=== PATIENT | female | born 1945 | race Two or more races ===

== ENCOUNTER 2024-06-28 02:06 | Inpatient (IN) | payer MEDICARE, OTHER ==
[~2024-06-28] VITALS: Ht 160 cm; Wt 41.3 kg
[2024-06-28] MEDS ORDERED: MAG HYDROX/AL HYDROX/SIMETH 30 ML UDC PO PRN (05:30)
[2024-06-28] MEDS ORDERED: ONDANSETRON HCL/PF 4 MG/2 ML VIAL IVP PRN (05:30)
[2024-06-28] MEDS ORDERED: MAGNESIUM HYDROXIDE 30 ML UDC PO PRN (05:30)
[2024-06-28] MEDS ORDERED: Z GUARD REMEDY 4 OZ OINT TP PRN (05:30)
[2024-06-28] MEDS ORDERED: DEXTROSE 50%-WATER 50 ML DISP.SYRIN IVP PRN (05:30)
[2024-06-28] MEDS ORDERED: Sodium Chloride 154 MEQ in IV 10% DEXTROSE 1,000 ML IV SCH (05:30)
[2024-06-28] MEDS: IV D5/ 0.9% NACL 1,000 ML IV PRN (07:35)
[2024-06-28 08:00] VITALS: BP 169/75; TEMP 98.1; O2SAT 99
[2024-06-28 08:44] LABS: ALANINE AMINOTRANSFERASE 27 U/L (12-78); ALBUMIN 3.6 g/dL (3.4-5.0); ALKALINE PHOSPHATASE 71 U/L (46-116); ASPARTATE AMINOTRANSFERASE 45 U/L (15-37); BASOPHILS % (AUTO) 0.1 % (0.0-2.0); BILIRUBIN,TOTAL 0.3 mg/dL (0.2-1.0); CALCIUM, SERUM 9.4 mg/dL (8.5-10.1); CARBON DIOXIDE 29 mmol/L (21-32); CHLORIDE 101 mmol/L (98-107); GLUCOSE 103 mg/dL (74-106); HEMATOCRIT 32 % (33-45); HEMOGLOBIN 10.8 g/dL (11.5-14.8); LYMPHOCYTES # (AUTO) 0.6 K/uL (0.8-4.8); LYMPHOCYTES % (AUTO) 11.2 % (20.0-44.0); MAGNESIUM 2.5 mg/dL (1.8-2.4); MEAN CORPUSCULAR HEMOGLOBIN 31 PG (26.0-33.0); MEAN CORPUSCULAR HGB CONC 33 g/dl (31.0-36.0); MEAN CORPUSCULAR VOLUME 93 fL (82-100); MONOCYTES # (AUTO) 0.4 K/uL (0.1-1.30); MONOCYTES % (AUTO) 8.4 % (2.0-12.0); NEUTROPHILS # (AUTO) 4.1 K/uL (1.8-8.9); NEUTROPHILS % (AUTO) 79.3 % (43.0-81.0); PHOSPHORUS 2.5 mg/dL (2.5-4.9); PLATELET COUNT (AUTO) 287 K/uL (150-450); POTASSIUM 5.1 mmol/L (3.5-5.1); RED BLOOD CELL COUNT(AUTO) 3.49 MIL/uL (4.0-5.2); RED CELL DISTRIBUTION WIDTH 20.1 % (11.5-15.0); SODIUM SERUM 138 mmol/L (136-145); TOTAL PROTEIN, SERUM 7.8 g/dL (6.4-8.2); UREA NITROGEN, BLOOD 7 mg/dL (7-18); WHITE BLOOD COUNT (AUTO) 5.2 K/uL (4.3-11.0)
[2024-06-28] MEDS: PANTOPRAZOLE 40 MG VIAL IV SCH (09:49)
[2024-06-28 09:57] LABS: THYROID STIMULATING HORMONE 2.88 uIU/mL (0.358-3.74)
[2024-06-28 10:00] VITALS: BP 169/75; TEMP 98.1; O2SAT 99
[2024-06-28] MEDS: hydrALAZINE HCL IV 20 MG VIAL IV PRN (10:25)
[2024-06-28] MEDS ORDERED: DEXTROSE 50%-WATER 50 ML DISP.SYRIN IV PRN (11:30)
[2024-06-28] MEDS ORDERED: CALC-1239 PO (11:46)
[2024-06-28] MEDS ORDERED: HUM10VIA3 SQ (11:46)
[2024-06-28] MEDS ORDERED: BENA40TA8 PO (11:46)
[2024-06-28] MEDS ORDERED: METF-441 PO (11:46)
[2024-06-28] MEDS ORDERED: LEVO50TA8 PO (11:46)
[2024-06-28] MEDS ORDERED: FELO5TAB45 PO (11:46)
[2024-06-28] MEDS ORDERED: ANAS1TAB50 PO (11:46)
[2024-06-28] MEDS ORDERED: METO25TA4 PO (11:46)
[2024-06-28] MEDS ORDERED: HYDR25TA4 PO (11:46)
[2024-06-28] MEDS ORDERED: ASPI-1420 PO (11:46)
[2024-06-28] MEDS: BLOOD SUGAR DIAGNOSTIC 1 EACH STRIP IN SCH (13:56)
[2024-06-28 16:00] VITALS: BP 136/69; TEMP 98.1; O2SAT 99
[2024-06-28 18:00] VITALS: BP 136/69; TEMP 98.1; O2SAT 99
[2024-06-28 20:00] VITALS: BP 147/70; TEMP 98.6; O2SAT 99
[2024-06-29 04:00] VITALS: BP 123/62; TEMP 98.5; O2SAT 99
[2024-06-29 06:50] LABS: BASOPHILS % (AUTO) 0.3 % (0.0-2.0); EOSINOPHILS # (AUTO) 0.2 K/uL (0.0-0.7); EOSINOPHILS % (AUTO) 6.1 % (0.0-6.0); HEMATOCRIT 24 % (33-45); HEMOGLOBIN 8.1 g/dL (11.5-14.8); LYMPHOCYTES # (AUTO) 0.9 K/uL (0.8-4.8); LYMPHOCYTES % (AUTO) 27.2 % (20.0-44.0); MEAN CORPUSCULAR HEMOGLOBIN 31 PG (26.0-33.0); MEAN CORPUSCULAR HGB CONC 34 g/dl (31.0-36.0); MEAN CORPUSCULAR VOLUME 91 fL (82-100); MONOCYTES # (AUTO) 0.4 K/uL (0.1-1.30); MONOCYTES % (AUTO) 11.3 % (2.0-12.0); NEUTROPHILS # (AUTO) 1.9 K/uL (1.8-8.9); NEUTROPHILS % (AUTO) 55.1 % (43.0-81.0); PLATELET COUNT (AUTO) 230 K/uL (150-450); RED BLOOD CELL COUNT(AUTO) 2.64 MIL/uL (4.0-5.2); RED CELL DISTRIBUTION WIDTH 19.8 % (11.5-15.0); WHITE BLOOD COUNT (AUTO) 3.4 K/uL (4.3-11.0)
[2024-06-29 08:00] VITALS: BP 140/63; TEMP 99.5; O2SAT 98
[2024-06-29] MEDS: PANTOPRAZOLE 40 MG TABLET.DR PO SCH (08:06)
[2024-06-29 08:17] LABS: CALCIUM, SERUM 8.4 mg/dL (8.5-10.1); CARBON DIOXIDE 28 mmol/L (21-32); CHLORIDE 108 mmol/L (98-107); GLUCOSE 123 mg/dL (74-106); POTASSIUM 4.4 mmol/L (3.5-5.1); SODIUM SERUM 142 mmol/L (136-145); UREA NITROGEN, BLOOD 5 mg/dL (7-18)
[2024-06-29 16:00] VITALS: BP 163/79; TEMP 98.2; O2SAT 98
[2024-06-29] MEDS: GLUCERNA SHAKE 237 ML CAN PO SCH (17:00)
[2024-06-29 18:55] VITALS: BP 166/76; TEMP 98.5; O2SAT 98
[2024-06-29 20:00] VITALS: BP 166/76; TEMP 98.6; O2SAT 100
[2024-06-29] MEDS: INSULIN REGULAR, HUMAN 100 UNIT/ML 3 ML VIAL SQ PRN (21:50)
[2024-06-29] MEDS: ACETAMINOPHEN 325 MG TABLET PO PRN (22:57)
[2024-06-30 04:00] VITALS: BP 130/80; TEMP 98.6; O2SAT 100
[2024-06-30 06:34] LABS: BASOPHILS % (AUTO) 0.4 % (0.0-2.0); EOSINOPHILS # (AUTO) 0.1 K/uL (0.0-0.7); EOSINOPHILS % (AUTO) 1.7 % (0.0-6.0); HEMATOCRIT 25 % (33-45); HEMOGLOBIN 8.5 g/dL (11.5-14.8); LYMPHOCYTES # (AUTO) 0.8 K/uL (0.8-4.8); LYMPHOCYTES % (AUTO) 10.3 % (20.0-44.0); MEAN CORPUSCULAR HEMOGLOBIN 31 PG (26.0-33.0); MEAN CORPUSCULAR HGB CONC 34 g/dl (31.0-36.0); MEAN CORPUSCULAR VOLUME 91 fL (82-100); MONOCYTES # (AUTO) 0.8 K/uL (0.1-1.30); MONOCYTES % (AUTO) 11.2 % (2.0-12.0); NEUTROPHILS # (AUTO) 5.7 K/uL (1.8-8.9); NEUTROPHILS % (AUTO) 76.4 % (43.0-81.0); PLATELET COUNT (AUTO) 236 K/uL (150-450); RED BLOOD CELL COUNT(AUTO) 2.73 MIL/uL (4.0-5.2); RED CELL DISTRIBUTION WIDTH 19.5 % (11.5-15.0); WHITE BLOOD COUNT (AUTO) 7.5 K/uL (4.3-11.0)
[2024-06-30 06:56] LABS: CALCIUM, SERUM 8.4 mg/dL (8.5-10.1); CARBON DIOXIDE 24 mmol/L (21-32); CHLORIDE 106 mmol/L (98-107); CREATININE 0.9 mg/dL (0.6-1.3); GLUCOSE 170 mg/dL (74-106); POTASSIUM 3.8 mmol/L (3.5-5.1); SODIUM SERUM 140 mmol/L (136-145); UREA NITROGEN, BLOOD 6 mg/dL (7-18)
[2024-06-30 08:00] VITALS: BP 148/65; TEMP 98.1; O2SAT 98
[2024-06-30] MEDS ORDERED: METF-440 PO (09:33)
== END 2024-06-30 17:49 | disposition home or self-care (01) | DRG 637 ==
LOC: MEDSG1 04:48
PROVIDERS: ADMIT Internal Medicine; ATTEND Internal Medicine
DX: E11.649 Type 2 diabetes mellitus with hypoglycemia without coma (principal); G93.41 Metabolic encephalopathy; R64 Cachexia; I10 Essential (primary) hypertension; D64.9 Anemia, unspecified; Z91.199 Patient's noncompliance with other medical treatment and regimen due to unspecified reason; Z79.899 Other long term (current) drug therapy; Z79.84 Long term (current) use of oral hypoglycemic drugs; Z79.890 Hormone replacement therapy; Z79.82 Long term (current) use of aspirin; Z79.4 Long term (current) use of insulin
CPT/HCPCS: 36415; 80048-TC; 80053-TC; 82533; 82962-TC; 83735-TC; 84100-TC; 84439-TC; 84443-TC; 85025-TC; A4223; G0378; J0360; J1815; J2470; J3490; J7042; J7070